=== PATIENT | male | born 1990 | race Hispanic/Latino ===

== ENCOUNTER → 2020-11-09 | Outpatient (REF) | payer OTHER ==
[2020-11-09 13:31] LABS: SEMEN APPEARANCE OPAQUE (OPAQUE); SEMEN VISCOSITY LIQUID (LIQUID); SEMEN VOLUME 2.6 ml (2.0-5.0); SEMEN pH 8.5 (7.0-8.0); SPERM CONCENTRATION 36.7 M/ml (>=15.0); WBC CONCENTRATION <=1 M/ml (<=1 M/ml)
== END ==
LOC: M LAB REF 13:05
PROVIDERS: ATTEND Physician Assistant
DX: N46.9 Male infertility, unspecified (principal)

== ENCOUNTER → 2022-02-01 | Outpatient (REF) | LOC: M PLAIMG 13:34 | PROVIDERS: ATTEND Internal Medicine | DX: R06.02 Shortness of breath (principal) ==

== ENCOUNTER 2022-02-05 12:08 | Outpatient (RCR) | payer OTHER | END 2022-02-21 | LOC: M ST 12:08 | DX: F98.5 Adult onset fluency disorder (principal) ==

== ENCOUNTER 2022-02-28 08:00 | Outpatient (RCR) | payer OTHER | END 2022-03-23 | LOC: M ST 08:00 | DX: F98.5 Adult onset fluency disorder (principal) ==

== ENCOUNTER 2022-04-11 07:43 | Outpatient (RCR) | payer OTHER | END 2022-04-23 | LOC: M ST 07:43 | PROVIDERS: ATTEND Psychologist Clinical | DX: F98.5 Adult onset fluency disorder (principal) ==

== ENCOUNTER 2022-05-20 14:00 | Outpatient (RCR) | payer OTHER | END 2022-05-23 | LOC: M ST 14:00 | PROVIDERS: ATTEND Psychologist Clinical | DX: F98.5 Adult onset fluency disorder (principal) ==

== ENCOUNTER 2022-06-20 11:53 | Outpatient (RCR) | payer OTHER | END 2022-06-23 | LOC: M ST 11:53 | PROVIDERS: ATTEND Psychologist Clinical | DX: F98.5 Adult onset fluency disorder (principal) ==